=== PATIENT | female | born 1960 | race Caucasian/White ===

== ENCOUNTER 2017-09-16 12:07 | Emergency (ER) | payer SELFPAY ==
[~2017-09-16 12:07] MED LIST: ASPI1TAB69 PO; FURO20TA PO; METO1TAB9 PO; METR1TAB76 PO; POTA10SO12 PO; VITA200012 PO
[2017-09-16 12:31] VITALS: BP 162/71; PULSE 62; RESP 16; TEMP 98.7; O2SAT 100
[2017-09-16] MEDS ORDERED: METO50TA PO ×2 (12:53)
--- NOTE | 2017-09-16 12:59 | PD ---
HPI Chief Complaint: Medication Refill Request Time Seen by Provider: 12:50 Travel History International Travel<30 days: No Contact w/Intl Traveler<30days: No Traveled to known affect area: No History of Present Illness HPI 57-year-old female presents to the emergency room requesting medication refill of metoprolol 50 mg 3 times daily. Patient states she has been on her medications for 6 years. She lost her job in April and has not been able to follow-up with her primary care physician because she owes them money. States she has never been without her medication. She will run out in 3 days. Patient is anxious because anytime she skips her medication, she has palpitations. She is crying, concerned that she will have a heart attack if she abruptly stops her medications. She only takes metoprolol and lisinopril. Her primary care doctor refilled her lisinopril for free but would not refill her metoprolol without performing blood work. PFSH Past Medical History Anemia: Yes Arthritis: No Asthma: No Autoimmune Disease: No Anxiety: No Depression: No Heart Rhythm Problems: Yes (PREMATURE HEART BEAT, MITRAL VALVE PROLAPSE) Cancer: No Cardiovascular Problems: Yes (irregular heart beat mild mitral valve prolapse) High Cholesterol: No Chemotherapy: No Chest Pain: No Congestive Heart Failure: No COPD: No Cerebrovascular Accident: No Diabetes: No Endocrine: No GERD: No Genitourinary: No Hepatitis: No Hiatal Hernia: No Immune Disorder: No Kidney Stones: No Musculoskeletal: No Neurologic: No Psychiatric: No Reproductive: Yes Respiratory: No Immunizations Current: No Migraines: No Radiation Therapy: No Renal Failure: No Seizures: No Sickle Cell Disease: No Sleep Apnea: Yes (POSSIBLE- WILL TAKE A SLEEP STUDY SOON WITH PCP) Thyroid Disease: No Ulcer: No Past Surgical History Abdominal Surgery: No AICD: No Arteriovenous Shunt: No Cardiac Surgery: No Ear Surgery: No Endocrine Surgery: No Eye Surgery: No Genitourinary Surgery: No Gynecologic Surgery: Yes (MATA) Insulin Pump: No Joint Replacement: No Oral Surgery: Yes (t and a) Pacemaker: No Thoracic Surgery: No Tonsillectomy: Yes Social History Alcohol Use: No Tobacco Use: No Substance Use: No Allergies-Medications (Allergen,Severity, Reaction): Coded Allergies: codeine (Unverified Allergy, Severe, all codeine causes rash and shortness of breath, 02/04/17) meperidine (Unverified Allergy, Severe, BRADYCARDIA, 02/04/17) Reported Meds & Prescriptions Reported Meds & Active Scripts Active Metoprolol Tartrate 50 Mg Tab 50 Mg PO TID 21 Days Metronidazole 500 Mg Tab 500 Mg PO BID PRN Reported Potassium Chloride Liq (Potassium Chloride) Unknown Strength Soln Unknown Dose PO DAILY Furosemide 20 Mg Tab 20 Mg PO DAILY Metoprolol Succinate ER 24 HR (Metoprolol Succinate) 50 Mg Tab 50 Mg PO BID Vitamin D3 (Cholecalciferol) 2,000 Unit Tab 2,000 Units PO DAILY Aspirin 81 Mg Tabdr 81 Mg PO DAILY Review of Systems Except as stated in HPI: all other systems reviewed are Neg Physical Exam Narrative GENERAL: Well-nourished, well-developed female no acute distress. Afebrile. Ambulatory. SKIN: Focused skin assessment warm/dry. HEAD: Normocephalic. EYES: No scleral icterus. No injection or drainage. NECK: Supple, trachea midline. No JVD or lymphadenopathy. CARDIOVASCULAR: Regular rate and rhythm without murmurs, gallops, or rubs. RESPIRATORY: Breath sounds equal bilaterally. No accessory muscle use. PSYCHIATRIC: No delusional thought processes. No hallucinations. Anxious. Data Data Last Documented VS Vital Signs Date Time Temp Pulse Resp B/P (MAP) Pulse Ox O2 Delivery O2 Flow Rate FiO2 09/16/17 12:31 98.7 62 16 162/71 (101) 100 Orders Orders Ed Discharge Order (09/16/17 12:59) MDM Medical Decision Making Medical Screen Exam Complete: Yes Emergency Medical Condition: Yes Medical Record Reviewed: Yes Differential Diagnosis medication refill, palpitations, medication withdrawal Narrative Course 13-year-old female presents to the emergency room requesting medication refill of her metoprolol 50 mg 3 times daily. Patient states she will run out in 3 days. She has been on her medication for 6 years. She just lost her insurance because she lost her job at her primary care doctor will not see her because she owes him money. Patient is highly anxious about being out of her medication because it causes palpitations. She is worried she will have a heart attack. Physical exam is unremarkable. Vital signs stable. Patient will be given three-week extension of her metoprolol and told to follow-up with [facility] within 3 weeks for continuation of medications and outpatient lab work. She was told to return for worsening symptoms. She understands and agrees to plan. Diagnosis Primary Impression: Medication refill Referrals: [facility] Primary Care Physician Additional Instructions: Take medication as directed. Follow-up with a primary care physician. Return to the emergency room for worsening symptoms. Scripts Metoprolol Tartrate (Metoprolol Tartrate) 50 Mg Tab 50 MG PO TID for 21 Days, #63 TAB 0 Refills Prov: Jamaal Durant MD 09/16/17 Disposition: 01 DISCHARGE HOME Condition: Stable Miya Corona Sep 16, 2017 12:59
== END 2017-09-16 13:43 | disposition home or self-care (01) ==
LOC: NEPK 12:07
DX: Z76.0 Encounter for issue of repeat prescription (principal)
CPT/HCPCS: 99281